=== PATIENT | female | born 1975 | race Asian ===

== ENCOUNTER 2017-04-20 19:25 | Inpatient (IN) | payer SELFPAY ==
[~2017-04-20] VITALS: Ht 171 cm; Wt 77.1 kg
[2017-04-20] MEDS ORDERED: OXYTOCIN 10 UNITS/ML VIAL ONE (19:49)
[2017-04-20] MEDS ORDERED: OXYTOCIN 20 UNITS/LR PREMIX 1,000 ML IV ONE (19:50)
[2017-04-20] MEDS ORDERED: AMPICILLIN 2,000 MG VIAL ONE (19:50)
[2017-04-20] MEDS ORDERED: LIDOCAINE MPF 1% - **ER/OR** 0 ML ONE (19:52)
[2017-04-20] MEDS ORDERED: BUPIVACAINE 0.125%/NS PREMIX 250 ML ONE (19:56)
[2017-04-20] MEDS ORDERED: PREN1SGL25 PO (20:11)
[2017-04-20] MEDS ORDERED: FERR-252 PO (20:12)
[2017-04-20] MEDS ORDERED: OXYTOCIN 10 UNITS/ML VIAL IM SCH (20:15)
[2017-04-20] MEDS ORDERED: CARBOPROST 250 MCG/ML AMP IM PRN (20:15)
[2017-04-20] MEDS ORDERED: AMPICILLIN 2,000 MG in NACL 0.9% MINI-BAG PLUS 100 ML IV SCH (20:15)
[2017-04-20] MEDS ORDERED: METHYLERGONOVINE 0.2 MG/ML AMP IM PRN (20:15)
[2017-04-20] MEDS ORDERED: BUPIVACAINE 0.125%/NS PREMIX 250 ML EPI SCH (20:35)
[2017-04-20] MEDS: LACTATED RINGERS 1,000 ML IV SCH (21:05)
[2017-04-20 21:16] LABS: BASOPHILS # (AUTO) 0.1 K/uL (0.00-0.22); BASOPHILS % (AUTO) 1.6 % (0.0-2.0); EOSINOPHILS % (AUTO) 0.2 % (0.0-4.0); HEMATOCRIT 42.4 % (36-48); HEMOGLOBIN 14.1 g/dL (12.0-16.0); LYMPHOCYTES # (AUTO) 1.2 K/uL (2.5-16.5); LYMPHOCYTES % (AUTO) 16.6 % (20.5-51.1); MEAN CORPUSCULAR HEMOGLOBIN 30 pg (27-31); MEAN CORPUSCULAR HGB CONC 33 g/dL (33-37); MEAN CORPUSCULAR VOLUME 90 fL (80-94); MONOCYTES # (AUTO) 0.2 K/uL (0.8-1.0); NEUTROPHILS # (AUTO) 5.8 K/uL (1.8-7.7); NEUTROPHILS % (AUTO) 78.6 % (42.2-75.2); PLATELET COUNT (AUTO) 110 K/uL (140-450); RED BLOOD CELL COUNT(AUTO) 4.73 MIL/uL (4.20-5.40); RED CELL DISTRIBUTION WIDTH 14.3 % (11.6-13.7); WHITE BLOOD COUNT (AUTO) 7.3 K/uL (4.8-10.8)
[2017-04-20 21:32] LABS: ANION GAP 16.3 (8-16); CARBON DIOXIDE 21.3 mmol/L (21-32); CREATININE 0.9 mg/dL (0.6-1.3); POTASSIUM 4.6 mmol/L (3.5-5.1)
[2017-04-20 21:34] LABS: APPEARANCE,URINE CLEAR (CLEAR); BILIRUBIN,URINE NEGATIVE (NEGATIVE); BLOOD, URINE 1+ (NEGATIVE); COLOR,URINE YELLOW (YELLOW); LEUKOCYTE ESTERASE ,URINE NEGATIVE (NEGATIVE); NITRITE, URINE NEGATIVE (NEGATIVE); PH,URINE 6.5 (5.0-9.0); UGLUCOSE NEGATIVE (NEGATIVE)
[2017-04-20 21:38] LABS: ALBUMIN 2.4 g/dL (3.4-5.0); TOTAL BILIRUBIN 0.9 mg/dL (0.0-1.0)
[2017-04-20] MEDS ORDERED: hydrALAZINE 20 MG/ML VIAL ONE ×2 (21:47→23:03)
[2017-04-20 21:57] LABS: RBC,URINE 0-5 (RARE) /HPF (0-5); WBC,URINE 0-5 (RARE) /HPF (0-5)
[2017-04-20] MEDS ORDERED: LABETALOL 100 MG TAB ONE (23:03)
[2017-04-20] MEDS ORDERED: hydrALAZINE 20 MG/ML VIAL IM SCH (23:10)
[2017-04-20] MEDS ORDERED: LABETALOL 100 MG TAB PO SCH (23:10)
[2017-04-20] MEDS ORDERED: MAG SULF 20 GM/H2O PREMIX DRIP 500 ML IV ONE (23:36)
[2017-04-21 01:09] VITALS: BP 180/97
[2017-04-21] MEDS ORDERED: TEMAZEPAM 15 MG CAP PO PRN (04:05)
[2017-04-21] MEDS ORDERED: HYDROcodone/APAP 5/325 MG 1 TAB TAB PO PRN (04:05)
[2017-04-21] MEDS ORDERED: oxyCODONE/APAP 5/325 MG 1 TAB TAB PO PRN (04:05)
[2017-04-21] MEDS ORDERED: METHYLERGONOVINE 0.2 MG/ML AMP IM PRN (04:05)
[2017-04-21] MEDS ORDERED: OXYTOCIN 10 UNITS/ML VIAL IM PRN (04:05)
[2017-04-21] MEDS ORDERED: MEASLES, MUMPS, AND RUBELLA 1 VIAL SQVAC PRN (04:05)
[2017-04-21] MEDS ORDERED: IBUPROFEN 800 MG TAB PO PRN (04:05)
[2017-04-21] MEDS ORDERED: BENZOCAINE/MENTHOL 20%-0.5% 60 GM CAN TP PRN (04:05)
[2017-04-21 06:19] LABS: HEMATOCRIT 35.6 % (36-48); HEMOGLOBIN 12.4 g/dL (12.0-16.0)
[2017-04-21] MEDS ORDERED: HYDROcodone/APAP 5/325 MG 1 TAB TAB ONE (06:27)
[2017-04-21] MEDS ORDERED: MAG SULF 20 GM/H2O PREMIX DRIP 500 ML IV ONE (08:58)
--- NOTE | 2017-04-21 09:04 | NUR ---
PATIENT HAS BEEN SCREENED AND CATEGORIZED LOW NUTRITION RISK. PATIENT WILL BE SEEN WITHIN 7 DAYS OF ADMISSION. 04/26/[address]
[2017-04-21] MEDS ORDERED: MAG SULF 20 GM/H2O PREMIX DRIP 500 ML IV SCH (09:15)
[2017-04-21] MEDS ORDERED: CARBOPROST 250 MCG/ML AMP IM ONE (10:59)
[2017-04-21] MEDS ORDERED: CARBOPROST 250 MCG/ML AMP IM SCH ×2 (11:06→11:20)
[2017-04-21] MEDS ORDERED: METHYLERGONOVINE 0.2 MG/ML AMP ONE (11:27)
[2017-04-21] MEDS ORDERED: oxyCODONE/APAP 5/325 MG 1 TAB TAB ONE (11:27)
[2017-04-21] MEDS ORDERED: DOCUSATE SOD/SENNA 50/8.6 MG 1 TAB PO SCH (21:00)
[2017-04-21] MEDS ORDERED: LABETALOL 100 MG TAB ONE (21:01)
[2017-04-22 05:49] LABS: BASOPHILS # (AUTO) 0.1 K/uL (0.00-0.22); BASOPHILS % (AUTO) 0.4 % (0.0-2.0); EOSINOPHILS % (AUTO) 0.3 % (0.0-4.0); HEMATOCRIT 22.6 % (36-48); HEMOGLOBIN 7.7 g/dL (12.0-16.0); LYMPHOCYTES # (AUTO) 1.7 K/uL (2.5-16.5); LYMPHOCYTES % (AUTO) 12.2 % (20.5-51.1); MEAN CORPUSCULAR HEMOGLOBIN 31 pg (27-31); MEAN CORPUSCULAR HGB CONC 34 g/dL (33-37); MEAN CORPUSCULAR VOLUME 90 fL (80-94); MONOCYTES # (AUTO) 0.5 K/uL (0.8-1.0); NEUTROPHILS # (AUTO) 11.3 K/uL (1.8-7.7); NEUTROPHILS % (AUTO) 83.1 % (42.2-75.2); PLATELET COUNT (AUTO) 112 K/uL (140-450); RED BLOOD CELL COUNT(AUTO) 2.52 MIL/uL (4.20-5.40); RED CELL DISTRIBUTION WIDTH 14.4 % (11.6-13.7)
[2017-04-22 07:56] LABS: WHITE BLOOD COUNT (AUTO) 13.6 K/uL (4.8-10.8)
[2017-04-22] MEDS ORDERED: INFLUENZA VIRUS VACCINE QUAD 0.5 ML SYR IMVAC SCH (09:00)
[2017-04-22] MEDS ORDERED: LABETALOL 100 MG TAB PO SCH (09:00)
[2017-04-23 11:59] LABS: RAPID PLASMA REAGIN NON-REACTIVE (Non Reactiv)
== END 2017-04-22 17:10 | disposition home or self-care (01) | DRG 774 ==
LOC: OBSVTOIN 19:25 → MLD 19:25 → MFCC 04-22 07:30
PROVIDERS: ADMIT Obstetrics & Gynecology; ATTEND Obstetrics & Gynecology
PROC: 10E0XZZ Delivery of Products of Conception, External Approach (ICD-10-PCS; principal; 2017-04-20)
PROC: 0W8NXZZ Division of Female Perineum, External Approach (ICD-10-PCS; 2017-04-20)
PROC: 3E0R3BZ Introduction of Anesthetic Agent into Spinal Canal, Percutaneous Approach (ICD-10-PCS; 2017-04-20)
PROC: 00HU33Z Insertion of Infusion Device into Spinal Canal, Percutaneous Approach (ICD-10-PCS; 2017-04-20)
DX: O72.1 Other immediate postpartum hemorrhage (principal); Z28.21 Immunization not carried out because of patient refusal; Z3A.36 36 weeks gestation of pregnancy; Z37.0 Single live birth
CPT/HCPCS: 36415; 51702; 59409; 80053; 81001; 83735; 85018; 85025; 85384; 85610; 85730; 86592; 86762; 86886; 86900; 86901; 87340; J0290; J0360; J2001; J2210; J2590; J3475; J3490; J7120